=== PATIENT | male | born 1940 | race Caucasian/White ===

== ENCOUNTER 2024-07-31 17:18 | Outpatient (CLI) | payer MEDICARE, BC, SELFPAY | END 2024-07-31 17:19 | disposition home or self-care (01) | LOC: AMB 08-03 02:06 | PROVIDERS: Visit Provider Family Medicine | DX: R50.9 Fever, unspecified (principal); U07.1 COVID-19 | CPT/HCPCS: A0425; A0429 ==

== ENCOUNTER 2024-07-31 17:46 | Observation (INO) | payer MEDICARE, BC, SELFPAY ==
[2024-07-31] VITALS (16 sets, daily range): BP systolic 128–156; BP diastolic 63–97; PULSE 55–76; RESP 16–45; TEMP 36.9–38.8; O2SAT 92–95; BMI 33.5; BMI 33.3
--- NOTE | 2024-07-31 18:34 | ED.GENADULT ---
HPI - General Adult General Chief complaint: Weakness Stated complaint: Lethargic, weak Time Seen by Provider: 07/31/24 17:50 Source: family and EMS Mode of arrival: EMS Limitations: altered mental status History of Present Illness HPI narrative: 84-year-old male presenting to day with fevers. He was diagnosed with COVID earlier today. Unfortunately has become weaker and more confused as the day has gone on. Patient lives at home independently with his who was unable to take care of him in this state. He does have baseline dementia according to his son but this is much worse than usual. Patient is agitated and lethargic. Very little appetite today. Related Data Home Medications ?Medication ?Instructions ?Recorded ?Confirmed doxazosin 4 mg tablet (Cardura) 4 mg PO DAILY 07/31/24 07/31/24 hydrochlorothiazide 25 mg tablet 25 mg PO DAILY 07/31/24 07/31/24 levothyroxine 75 mcg tablet 75 mcg PO DAILY 07/31/24 07/31/24 (Euthyrox) simvastatin 20 mg tablet (Zocor) 20 mg PO DAILY 07/31/24 07/31/24 Allergies Allergy/AdvReac Type Severity Reaction Status Date / Time No Known Drug Allergies Allergy Verified 07/31/24 17:59 Review of Systems Status of ROS: Reports: unobtainable due to medical condition PFSH PFSH Social History How often do you have a drink containing alcohol: never AUDIT-C Alcohol total score: 0 Non-prescribed substance use: denies use Exam Narrative: Exam Narrative: Well-nourished well-developed patient in no acute distress. Cannot tell me where he is, the year or who he was talking to even after introductions. Patient states that he feels great he does not know why he is here. He is febrile. HEENT: Normocephalic atraumatic. Pupils are equally round reactive to light. Extraocular muscles are intact. Conjunctivae are moist without any icterus noted. Moist mucous membranes. Neck is soft. Speech is not slurred or pressured. Cardiovascular: Heart is regular rate and rhythm S1 and S2 are present without any murmurs. Lungs: Clear to auscultation bilaterally aside from mild bibasilar end-expiratory crackles. Abdomen: Soft and nontender nondistended with normal bowel sounds. Protuberant. Extremities: Bilateral lower extremities have 1 to 2+ pitting edema. Skin: Well perfused. Const: Vital Signs, click to edit/add: Vital Signs - 24 hr 07/31/24 17:52 07/31/24 18:05 07/31/24 18:06 Temperature 101.2 F H Pulse Rate 72 72 Pulse Rate [Pulse Oximeter] 73 Respiratory Rate 16 Blood Pressure 145/68 H Blood Pressure [Ri ght Upper Arm] 156/68 H Pulse Oximetry 95 94 94 Oxygen Delivery Me thod Room Air 07/31/24 18:16 07/31/24 18:30 07/31/24 18:32 Temperature Pulse Rate 71 70 76 Pulse Rate [Pulse Oximeter] Respiratory Rate Blood Pressure 138/97 H Blood Pressure [Ri ght Upper Arm] Pulse Oximetry 95 94 93 Oxygen Delivery Me thod 07/31/24 18:39 07/31/24 18:45 07/31/24 19:00 Temperature 101.9 F H Pulse Rate 69 Pulse Rate [Pulse Oximeter] Respiratory Rate 36 H Blood Pressure Blood Pressure [Ri ght Upper Arm] Pulse Oximetry 93 Oxygen Delivery Me thod 07/31/24 19:04 07/31/24 19:15 07/31/24 19:23 Temperature Pulse Rate Pulse Rate [Pulse Oximeter] Respiratory Rate 26 H 45 H 20 Blood Pressure Blood Pressure [Ri ght Upper Arm] Pulse Oximetry Oxygen Delivery Me thod Course Course ED Course: EKG, read by me, shows normal sinus rhythm with a pulse of 68. CBC does not show an elevated white cell count, normal hemoglobin. Sodium is low at 130, chloride low at 95. AST slightly elevated at 104, normal ALT. Bilirubin is elevated at 4.3, direct bilirubin elevated at 2.8. Protein and albumin are both elevated at 9.2 and 5.6 respectively. UA is unremarkable. Triple swab is positive for COVID-19. Potassium is still pending at this time. First specimen was hemolyzed. Chest x-ray does not show any acute infiltrates. Discussed patient with Dr. Reynoso, who will accept the patient for admission. Vital Signs Vital signs: Initial Vital Signs Temperature 101.2 F H 07/31/24 17:52 Temperature Source Temporal Artery Scan 07/31/24 17:52 Pulse Rate 73 07/31/24 17:52 Respiratory Rate 16 07/31/24 17:52 Blood Pressure 156/68 H 07/31/24 17:52 Blood Pressure Mean 97 07/31/24 17:52 Blood Pressure Position Sitting 07/31/24 17:52 Pulse Oximetry 95 07/31/24 17:52 Oxygen Delivery Method Room Air 07/31/24 17:52 Vital Signs Temperature 101.2 F H 07/31/24 17:52 Pulse Rate 73 07/31/24 17:52 Respiratory Rate 16 07/31/24 17:52 Blood Pressure 156/68 H 07/31/24 17:52 Pulse Oximetry 95 07/31/24 17:52 Oxygen Delivery Method Room Air 07/31/24 17:52 Temperature 101.9 F H 07/31/24 18:39 Pulse Rate 69 07/31/24 18:45 Respiratory Rate 20 07/31/24 19:23 Blood Pressure 138/97 H 07/31/24 18:32 Pulse Oximetry 93 07/31/24 18:45 Oxygen Delivery Method Room Air 07/31/24 17:52 Medications Administered Medications: Generic Name Dose Route Start Last Admin Trade Name Freq PRN Reason Stop Dose Admin Sodium Chloride 500 mls @ 500 mls/hr 07/31/24 19:10 07/31/24 19:29 0.9 % Sodium Chloride 500 Ml IV 07/31/24 20:09 500 mls/hr .Q1H ONE Administration Discontinued Medications Generic Name Dose Route Start Last Admin Trade Name Freq PRN Reason Stop Dose Admin Acetaminophen 1,000 mg 07/31/24 19:05 07/31/24 19:21 Acetaminophen 500 Mg Tablet PO 07/31/24 19:06 1,000 mg ONCE ONE Administration Medical Decision Making [facility] Narrative Medical decision making narrative: Elderly patient with COVID-19, weakness and confusion. Patient will be admitted for further management. Lab Data Lab results reviewed: Yes I reviewed the patient's lab results Labs: Lab Results 07/31/24 07/31/24 07/31/24 Range/Units 18:01 18:20 18:25 WBC 7.17 (4.50-11.00) K/uL RBC 5.07 (4.30-5.90) m/uL Hgb 16.3 (13.5-17.5) gm/dL Hct 47.9 (37.0-53.0) % MCV 95 (80-100) fL MCH 32 (26-34) pg MCHC 34 (32-36) gm/dL RDW Coeff of Shiv 13.0 (11.5-15.5) % Plt Count 161 (140-440) K/uL Neut % (Auto) 74.3 H (42.0-72.0) % Lymph % (Auto) 8.9 L (20-44) % [place] % (Auto) 15.8 H (0.0-11.0) % Eos % (Auto) 0.4 (0.0-7.0) % Baso % (Auto) 0.3 (0.0-3.0) % Neut # (Auto) 5.30 (1.7-7.0) K/uL Lymph # (Auto) 0.60 L (0.90-2.90) K/uL [place] # (Auto) 1.10 H (0.00-0.90) K/UL Eos # (Auto) 0.03 (0.00-0.50) K/uL Baso # (Auto) 0.02 (0.00-0.30) K/uL Abs Immat Gran (auto) 0.02 (0.00-0.30) K/uL Imm/Tot Granulo (auto) 0.3 % Sodium (135-149) mmol/L Chloride (96-114) mmol/L Carbon Dioxide (20-32) mmol/L Anion Gap (7-15) mEq/L BUN (7-30) mg/dL Creatinine (0.5-1.5) mg/dL Estimated Creat Clear Estimated GFR ml/min Glucose (60-115) mg/dL Lactate 1.3 (0.5-1.9) mmol/L Calcium (8.4-10.6) mg/dL Magnesium 2.1 (1.5-2.6) mg/dL Total Bilirubin 4.3 H (0.1-1.5) mg/dL Direct Bilirubin 2.8 H (0.0-0.5) mg/dL AST 104 H (12-35) U/L ALT 24 (4-50) U/L Alkaline Phosphatase < 20 L (40-150) U/L Troponin I 0.02 (0.01-0.04) ng/mL Total Protein 9.2 H (6.0-8.3) g/dL Albumin 5.6 H (3.3-5.0) g/dL Urine Color Yellow (Yellow) Urine Appearance Clear (Clear) Urine pH 5.5 (5.0-8.5) Ur Specific [place] 1.025 (1.000-1.030) Urine Protein Trace A (Negative) Urine Glucose (UA) Negative (Negative) Urine Ketones Negative (Negative) Urine Blood 1+ A (Negative) Urine Nitrite Negative (Negative) Urine Bilirubin Negative (Negative) Urine Urobilinogen 0.2 (0.2-1.0) Ur Leukocyte Esterase Negative (Negative) Urine RBC 0-2 (0-2) Urine WBC 0-2 (0-5) Ur Squamous Epith Cells None (None-Few) Urine Bacteria Few A (None) SARS-CoV-2 (PCR) POSITIVE SARS-CoV-2 A (Negative) Influenza Type A (PCR) Negative PCR FLU A (Negative) Influenza Type B (PCR) Negative PCR FLU B (Negative) RSV (PCR) Negative PCR RSV (Negative) 07/31/24 Range/Units 19:32 WBC (4.50-11.00) K/uL RBC (4.30-5.90) m/uL Hgb (13.5-17.5) gm/dL Hct (37.0-53.0) % MCV (80-100) fL MCH (26-34) pg MCHC (32-36) gm/dL RDW Coeff of Shiv (11.5-15.5) % Plt Count (140-440) K/uL Neut % (Auto) (42.0-72.0) % Lymph % (Auto) (20-44) % [place] % (Auto) (0.0-11.0) % Eos % (Auto) (0.0-7.0) % Baso % (Auto) (0.0-3.0) % Neut # (Auto) (1.7-7.0) K/uL Lymph # (Auto) (0.90-2.90) K/uL [place] # (Auto) (0.00-0.90) K/UL Eos # (Auto) (0.00-0.50) K/uL Baso # (Auto) (0.00-0.30) K/uL Abs Immat Gran (auto) (0.00-0.30) K/uL Imm/Tot Granulo (auto) % Sodium 130 L (135-149) mmol/L Chloride 95 L (96-114) mmol/L Carbon Dioxide 26 (20-32) mmol/L Anion Gap 9 (7-15) mEq/L BUN 16 (7-30) mg/dL Creatinine 1.0 (0.5-1.5) mg/dL Estimated Creat Clear 53.20 Estimated GFR 74 ml/min Glucose 117 H (60-115) mg/dL Lactate (0.5-1.9) mmol/L Calcium 8.3 L (8.4-10.6) mg/dL Magnesium (1.5-2.6) mg/dL Total Bilirubin (0.1-1.5) mg/dL Direct Bilirubin (0.0-0.5) mg/dL AST (12-35) U/L ALT (4-50) U/L Alkaline Phosphatase (40-150) U/L Troponin I (0.01-0.04) ng/mL Total Protein (6.0-8.3) g/dL Albumin (3.3-5.0) g/dL Urine Color (Yellow) Urine Appearance (Clear) Urine pH (5.0-8.5) Ur Specific [place] (1.000-1.030) Urine Protein (Negative) Urine Glucose (UA) (Negative) Urine Ketones (Negative) Urine Blood (Negative) Urine Nitrite (Negative) Urine Bilirubin (Negative) Urine Urobilinogen (0.2-1.0) Ur Leukocyte Esterase (Negative) Urine RBC (0-2) Urine WBC (0-5) Ur Squamous Epith Cells (None-Few) Urine Bacteria (None) SARS-CoV-2 (PCR) (Negative) Influenza Type A (PCR) (Negative) Influenza Type B (PCR) (Negative) RSV (PCR) (Negative) Imaging Data Chest x-ray: Attestation: I have reviewed the pertinent imaging results. Radiologist's impression: TECHNIQUE: Chest 1 view. COMPARISON: None. FINDINGS: Cardiovascular and mediastinum: Normal heart size. Uncoiled thoracic aorta. Lungs and pleural spaces: No focal consolidation. Mild right basilar atelectasis. No pleural effusion, or pneumothorax. Bones and soft tissues: Unremarkable for age. IMPRESSION: No evidence of an acute pulmonary process. ECG Data Attestation: I personally reviewed and interpreted this ECG as follows: Discharge Plan Discharge Clinical Impression: COVID-19, Weakness, Confusion Patient Disposition: Admitted As Observation Condition: Stable Prescriptions: No Action doxazosin [Cardura] 4 mg tablet 4 mg PO DAILY hydrochlorothiazide 25 mg tablet 25 mg PO DAILY levothyroxine [Euthyrox] 75 mcg tablet 75 mcg PO DAILY simvastatin [Zocor] 20 mg tablet 20 mg PO DAILY
[2024-07-31 18:36] LABS: Lactate* 1.3 mmol/L (0.5-1.9)
[2024-07-31 18:41] LABS: Basophils Absolute Auto 0.02 K/uL (0.00-0.30); Basophils Percent Auto 0.3 % (0.0-3.0); Eosinophils Absolute Auto 0.03 K/uL (0.00-0.50); Eosinophils Percent Auto 0.4 % (0.0-7.0); Hematocrit 47.9 % (37.0-53.0); Hemoglobin* 16.3 gm/dL (13.5-17.5); Immature Granulocytes Abs Auto 0.02 K/uL (0.00-0.30); Immature Granulocytes Pct Auto 0.3 %; Lymphocytes Percent Auto 8.9 % (20-44); Mean Corpuscular HGB Conc 34 gm/dL (32-36); Mean Corpuscular Hemoglobin 32 pg (26-34); Mean Corpuscular Volume 95 fL (80-100); Monocytes Percent Auto 15.8 % (0.0-11.0); Neutrophils Percent Auto 74.3 % (42.0-72.0); Platelet Count* 161 K/uL (140-440); Red Blood Count 5.07 m/uL (4.30-5.90); White Blood Count* 7.17 K/uL (4.50-11.00)
[2024-07-31 18:44] LABS: Slide Review Reflex No
[2024-07-31 19:06] LABS: Albumin* 5.6 g/dL (3.3-5.0)
[2024-07-31 19:07] LABS: Chloride* 95 mmol/L (96-114); Sodium* 130 mmol/L (135-149)
[2024-07-31 19:09] LABS: Alanine Aminotransferase* 24 U/L (4-50); Aspartate Amino Transferase* 104 U/L (12-35); Bilirubin Direct* 2.8 mg/dL (0.0-0.5); Bilirubin Total* 4.3 mg/dL (0.1-1.5); Magnesium* 2.1 mg/dL (1.5-2.6); Total Protein* 9.2 g/dL (6.0-8.3)
[2024-07-31 19:10] LABS: Anion Gap 9 mEq/L (7-15); Blood Urea Nitrogen* 16 mg/dL (7-30); Calcium* 8.3 mg/dL (8.4-10.6); Carbon Dioxide* 26 mmol/L (20-32); Estimated Glomerular Filt Rate 74 ml/min; Glucose* 117 mg/dL (60-115)
[2024-07-31 19:21] LABS: Troponin I* 0.02 ng/mL (0.01-0.04)
[2024-07-31] MEDS: ACETAMINOPHEN 500 MG TABLET 1000 MG PO (19:21)
[2024-07-31 19:24] LABS: Appearance Urine Clear (Clear); Bilirubin Urine Negative (Negative); Blood Urine 1+ (Negative); Color Urine Yellow (Yellow); Glucose Urine Negative (Negative); Ketones Urine Negative (Negative); Leukocyte Esterase Urine Negative (Negative); Nitrite Urine Negative (Negative); Protein Urine Trace (Negative); Specific Gravity Urine 1.025 (1.000-1.030); Urobilinogen Urine 0.2 (0.2-1.0); pH Urine 5.5 (5.0-8.5)
[2024-07-31] MEDS: 0.9 % SODIUM CHLORIDE 500 ML 500 ML IV ×2 (19:29→22:26)
[2024-07-31 19:30] LABS: PCR FLU A Negative PCR FLU A (Negative); PCR FLU B Negative PCR FLU B (Negative); PCR RSV Negative PCR RSV (Negative); SARS PCR* POSITIVE SARS-CoV-2 (Negative)
[2024-07-31 19:32] LABS: Alkaline Phosphatase* < 20 U/L (40-150)
[2024-07-31 19:41] LABS: Bacteria Urine Few; RBC Urine 0-2 (0-2); WBC Urine 0-2 (0-5)
[2024-07-31 19:51] LABS: Potassium* 3.3 mmol/L (3.6-5.1)
--- NOTE | 2024-07-31 21:53 | PM.IMHP1 ---
Hospitalist- H&P: HPI History of Present Illness Date Seen: 07/31/24 Chief complaint: Lethargic, weak Narrative: Willi Martines is a 84 year old man who presents with 1 day history of intermittent confusion, disorientation, weakness in association with intermittent spiking fevers. Home COVID test was negative yesterday. Home COVID test was positive today. Family initially intended on taking care of him in the home however he was so weak he could even stand up independently as he normally does so they ended up bringing him into the hospital via EMS for further assessment and treatment. Previously lived in [place], [place]. Moved to [facility], independent living section, February 2024. Lives there with his . He is retired. In speaking with his son, Milo Martines, college president of [facility], patient has had gradual progressive memory loss over the last few years but has been able to live independently with his . In the recent past his gait has become a little more unsteady and he started using a walker. T-max in the hospital today is 101.9? F. He has had tachypnea in association with the fever, with respiratory rate as high as 40. With resolution of his fever his tachypnea has also resolved. Has not had dyspnea or hypoxia. Has had a intermittent dry hacky cough. Review of Systems Status of ROS: Reports: 6 or more systems reviewed and unremarkable except as noted in History and below Narrative: He has very little recall of why he is here in the hospital or how he arrived here. He only recalls not feeling well and feeling weak. Denies cardiac or pulmonary symptoms. Denies gastrointestinal or genitourinary tract symptoms. Denies arthralgias or myalgias at this time but believes he may have had some aches and pains earlier today. Denies headache. [facility] Medical History ALANNA (obstructive sleep apnea) (09/02/15) ?G47.33 - Obstructive sleep apnea (adult) (pediatric) (ICD-10) Hypothyroidism (06/02/12) ?E03.9 - Hypothyroidism, unspecified (ICD-10) Hyperlipidemia ?E78.5 - Hyperlipidemia, unspecified (ICD-10) HTN (hypertension) (12/17/12) ?I10 - Essential (primary) hypertension (ICD-10) BPH (benign prostatic hyperplasia) (06/02/12) ?N40.0 - Benign prostatic hyperplasia without lower urinary tract symptoms (ICD-10) Asymmetrical sensorineural hearing loss ?H90.3 - Sensorineural hearing loss, bilateral (ICD-10) 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 Designates son, Milo Martines, as power of employment law attorney for health. His primary care physician is Dr. Ashley, [facility]. Requests DNR DNI resuscitation status. How often do you have a drink containing alcohol: never AUDIT-C Alcohol total score: 0 Non-prescribed substance use: denies use Meds Home Medications and Allergies Home Medications ?Medication ?Instructions ?Recorded ?Confirmed ?Type doxazosin 4 mg tablet (Cardura) 4 mg PO DAILY 07/31/24 07/31/24 History hydrochlorothiazide 25 mg tablet 25 mg PO DAILY 07/31/24 07/31/24 History levothyroxine 75 mcg tablet 75 mcg PO DAILY 07/31/24 07/31/24 History (Euthyrox) simvastatin 20 mg tablet (Zocor) 20 mg PO DAILY 07/31/24 07/31/24 History Allergies Allergy/AdvReac Type Severity Reaction Status Date / Time No Known Drug Allergies Allergy Verified 07/31/24 17:59 Exam Narrative: Exam Narrative: Examined patient in his hospital room. He is sitting comfortably on his bed. No acute distress. Alert and oriented to self, place, but needs to be reminded impart of time and situation. Pleasant, cooperative, friendly, articulate. External auditory canals are clear tympanic membranes are normal. Midline nasal septum. Dry buccal mucosa. Dentition in fair repair. Conjugate gaze. No icterus. Neck is supple. Midline trachea. No head neck lymphadenopathy. Lungs are clear to auscultation without wheezing, rhonchi, or rales. No coughing when I am examining him. Chest wall excursions are full. Heart tones with regular rhythm, normal S1-S2, without murmur, gallop, rub. PMI not laterally displaced. Abdomen is protuberant with active bowel sounds, soft, nontender. Extremities without edema. Moves all 4 extremities. Cranial nerves 3-12 grossly normal. No edema. Capillary refill less than 3 seconds. Skin is warm, dry, intact. Const: Vital Signs, click to edit/add: Vital Signs - 24 hr 07/31/24 17:52 07/31/24 18:05 07/31/24 18:06 Temperature 101.2 F H Pulse Rate 72 72 Pulse Rate [Pulse Oximeter] 73 Respiratory Rate 16 Blood Pressure 145/68 H Blood Pressure [Ri ght Upper Arm] 156/68 H Pulse Oximetry 95 94 94 Oxygen Delivery [facility] Room Air 07/31/24 18:16 07/31/24 18:30 07/31/24 18:32 Temperature Pulse Rate 71 70 76 Pulse Rate [Pulse Oximeter] Respiratory Rate Blood Pressure 138/97 H Blood Pressure [Ri ght Upper Arm] Pulse Oximetry 95 94 93 Oxygen Delivery [facility] 07/31/24 18:39 07/31/24 18:45 07/31/24 19:00 Temperature 101.9 F H Pulse Rate 69 Pulse Rate [Pulse Oximeter] Respiratory Rate 36 H Blood Pressure Blood Pressure [Ri ght Upper Arm] Pulse Oximetry 93 Oxygen Delivery [facility] 07/31/24 19:04 07/31/24 19:15 07/31/24 19:23 Temperature Pulse Rate Pulse Rate [Pulse Oximeter] Respiratory Rate 26 H 45 H 20 Blood Pressure Blood Pressure [Ri ght Upper Arm] Pulse Oximetry Oxygen Delivery [facility] 07/31/24 20:05 Temperature 101.3 F H Pulse Rate Pulse Rate [Pulse Oximeter] Respiratory Rate Blood Pressure Blood Pressure [Ri ght Upper Arm] Pulse Oximetry Oxygen Delivery [facility] Hospitalist - H&P: Result Labs Labs: Short CBC 07/31/24 Range/Units 18:25 WBC 7.17 (4.50-11.00) K/uL Hgb 16.3 (13.5-17.5) gm/dL Hct 47.9 (37.0-53.0) % Plt Count 161 (140-440) K/uL BMP 07/31/24 19:32 Sodium 130 L Potassium 3.3 L Chloride 95 L Carbon Dioxide 26 BUN 16 Creatinine 1.0 Glucose 117 H Calcium 8.3 L Cardiac Enzymes 07/31/24 Range/Units 18:25 Troponin I 0.02 (0.01-0.04) ng/mL Liver Function 07/31/24 Range/Units 18:25 Total Bilirubin 4.3 H (0.1-1.5) mg/dL Direct Bilirubin 2.8 H (0.0-0.5) mg/dL AST 104 H (12-35) U/L ALT 24 (4-50) U/L Alkaline Phosphatase < 20 L (40-150) U/L Albumin 5.6 H (3.3-5.0) g/dL Urine 07/31/24 Range/Units 18:01 Urine Color Yellow (Yellow) Urine Appearance Clear (Clear) Urine pH 5.5 (5.0-8.5) Ur Specific [place] 1.025 (1.000-1.030) Urine Protein Trace A (Negative) Urine Glucose (UA) Negative (Negative) ECG Attestation: I personally reviewed and interpreted this ECG as follows: ECG interpretation date: 07/31/24 Interpretation: Normal sinus rhythm without evidence of infarction or ischemic pattern. Imaging Chest x-ray: Attestation: I have reviewed the pertinent imaging results. Radiologist's impression: No acute cardiopulmonary findings. Assessment and Plan Assessment and plan (1) COVID-19: Problem comment: -symptom onset 07/30/2024. Home COVID test negative on 07/30/2024, but positive 07/31/2024. SARS-CoV-2 test positive 07/31/2024, negative chest x-ray. -start Paxlovid 150-100 renal dosing 08/01/2024. I sent prescription to [facility] on evening of 07/31/2024. Status: Acute (2) Confusion: Problem comment: -acute confusion on top of baseline slowly evolving cognitive impairment, likely fever associated delirium in association with COVID-19 -schedule acetaminophen and monitor his fevers. Will not order a nonsteroidal anti-inflammatory medication given his dehydrated state. -monitor -consider imaging if warranted over time, such as CT scan without contrast verses MRI of brain Status: Acute (3) Weakness: Problem comment: -usually independent with ADLs although recently started using a walker -current weakness likely related to acute febrile illness -PT and OT to assess and recommend Status: Acute (4) Age-related memory disorder: Problem comment: -Longstanding slowly evolving cognitive impairment consistent with dementia of Alzheimer's type, more recently with evolving gait impairment now requiring use of walker Status: Acute (5) Dehydration: Problem comment: -500 mL normal saline IV administered in the ED. -additional normal saline hydration on arrival to floor. Status: Acute (6) Hyponatremia: Problem comment: -normal saline IV -monitor -consider fluid restriction if appropriate over time Status: Acute (7) Hypokalemia: Problem comment: -potassium 3.0 on 07/31/2024. Potassium chloride 40 mEq p.o. administered evening of 07/31/2024. -monitor lab Status: Acute (8) Hyperbilirubinemia: Problem comment: -history of cholecystectomy -monitor levels with rehydration Status: Acute (9) Elevated transaminase level: Problem comment: -likely due to COVID-19 -monitor levels Status: Acute Plan 1. Reviewed impression and plan with patient. 2. Called his son, Milo Martines, I reviewed impression and plan as well. 3. Answered their questions are satisfaction. 4. They are agreeable with above stated plans and recommendations. Total Time Spent Total Time Spent: 70 minutes
[2024-07-31] MEDS: POTASSIUM CHLORIDE 10 MEQ CAPSULE ER 40 MEQ PO (22:25)
[2024-07-31] MEDS: ENOXAPARIN 40 MG/0.4 ML INJ SUBCUT (22:25)
[2024-07-31] MEDS: ACETAMINOPHEN 325 MG TABLET 975 MG PO (22:26)
[2024-07-31] MEDS: 0.9 % SODIUM CHLORIDE 1000 ml 1,000 ML 125 ML IV (22:26)
[2024-08-01 05:05] VITALS: BP 122/63; PULSE 58; TEMP 36.5; O2SAT 94
[2024-08-01] MEDS: LEVOTHYROXINE 75 MCG TABLET PO (06:31)
[2024-08-01 07:00] VITALS: BP 108/58; PULSE 48; PULSE 55; RESP 16; TEMP 37.1; O2SAT 93
[2024-08-01 07:03] LABS: Hematocrit 45.6 % (37.0-53.0); Hemoglobin* 15.2 gm/dL (13.5-17.5); Mean Corpuscular HGB Conc 33 gm/dL (32-36); Mean Corpuscular Hemoglobin 32 pg (26-34); Mean Corpuscular Volume 96 fL (80-100); Platelet Count* 157 K/uL (140-440); Red Blood Count 4.74 m/uL (4.30-5.90); White Blood Count* 6.71 K/uL (4.50-11.00)
[2024-08-01 07:20] LABS: Slide Review Reflex No
--- NOTE | 2024-08-01 07:24 | PC.NURSE ---
End of shift - Pt arrived from ED at approximately 2024. Oriented to self, disoriented to place, situation, and time. Pt very pleasant and easily reoriented. Pt required frequent education regarding call light use, however comprehension not shown and pt repeatedly set off bed alarm. Up with standby assistance using urinal at bedside upon arrival. Pt was able to ambulate to bathroom using walker and standby assistance by end of shift. Continent of bladder during shift. Tolerating RA, regular diet/fluids. Denies pain, SOB. Observed to sleep during shift. Febrile upon arrival to unit, given antipyretic medication per AUG. Afebrile for remainder of shift. Lethargy weakness originally reported from ED appeared to improve by shift end. Pt appears to be resting comfortably in bed with call light within reach.
[2024-08-01 07:32] LABS: Albumin* 3.6 g/dL (3.3-5.0); Chloride* 100 mmol/L (96-114)
[2024-08-01 07:33] LABS: Sodium* 135 mmol/L (135-149)
[2024-08-01 07:34] LABS: Creatinine* 0.9 mg/dL (0.5-1.5); Estimated Glomerular Filt Rate 84 ml/min
[2024-08-01 07:35] LABS: Alkaline Phosphatase* 31 U/L (40-150); Anion Gap 7 mEq/L (7-15); Aspartate Amino Transferase* 27 U/L (12-35); Bilirubin Direct* 0.2 mg/dL (0.0-0.5); Bilirubin Total* 1.4 mg/dL (0.1-1.5); Blood Urea Nitrogen* 14 mg/dL (7-30); Carbon Dioxide* 28 mmol/L (20-32)
[2024-08-01 07:36] LABS: Alanine Aminotransferase* 16 U/L (4-50); Glucose* 93 mg/dL (60-115)
[2024-08-01] MEDS: ACETAMINOPHEN 325 MG TABLET 975 MG PO ×3 (08:59→20:28)
[2024-08-01 11:00] VITALS: BP 102/54; PULSE 48; RESP 16; TEMP 36.9; O2SAT 93
--- NOTE | 2024-08-01 13:52 | PM.IMPN1 ---
Progress Note: A&P Assessment and plan (1) COVID-19: Problem details: -symptom onset 07/30/2024. Home COVID test negative on 07/30/2024, but positive 07/31/2024. SARS-CoV-2 test positive 07/31/2024, negative chest x-ray. -start Paxlovid 150-100 renal dosing 08/01/2024. Prescription to [facility] on evening of 07/31/2024. Son brought it this morning and it was started. - no hypoxia noted Status: Acute (2) Confusion: Problem details: -acute confusion on top of baseline slowly evolving cognitive impairment, likely fever associated delirium in association with COVID-19 -schedule acetaminophen and monitor his fevers. Will not order a nonsteroidal anti-inflammatory medication given his dehydrated state. - improving, but may be sundowning or delirious now this afternoon -monitor tonight yet and anticipate may be able to d/c home tomorrow -consider imaging if warranted over time, such as CT scan without contrast verses MRI of brain Status: Acute (3) Weakness: Problem details: -usually independent with ADLs although recently started using a walker -current weakness likely related to acute febrile illness -PT and OT recommend use walker for stability as outpatient. Patient's son aware and is getting a walker for Willi. 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 -additional normal saline hydration on arrival to floor. Status: Resolved (6) Hyponatremia: Problem details: -normal saline IV -monitor -consider fluid restriction if appropriate over time - resolved 08/01 Status: Resolved (7) Hypokalemia: Problem details: -potassium 3.0 on 07/31/2024. Potassium chloride 40 mEq p.o. administered evening of 07/31/2024. -monitor lab - resolved 08/01 Status: Resolved (8) Hyperbilirubinemia: Problem details: -history of cholecystectomy -monitor levels with rehydration - resolved 08/01 after rehydration Status: Resolved (9) Elevated transaminase level: Problem details: -likely due to COVID-19 -monitor levels - resolved 08/01 Status: Resolved (10) Bradycardia: Problem details: asymptomatic. Medications reviewed. Monitor on tele. Status: Acute Time Spent With Patient Total time spent: Today I spent for minutes seeing the patient, talking with the patient's son on the phone, reviewing Expanse and EPIC notes/diagnostics/labs, discussing the care plan with our care team that includes social work, PT/OT, pharmacy, RT, [facility] and documenting my impressions and plan in the medical record. Subjective Time Seen by Provider: 09:19 Date Seen: 08/01/24 Interval history: Willi feels better, stronger today. PT told me that he is unsteady, but could use a walker at home. I spoke with his son, Milo, who will work on getting one for him. I spoke with OT who noted Willi did well, but seems confused. Milo notes that Willi has dementia and sundowns. Willi was more confused last night with a fever also. Milo brought paxlovid in for Willi and he started taking it this morning. Exam Narrative: Exam Narrative: General: No acute distress. Awake, alert, oriented. No pallor. No jaundice. Oropharynx: Clear. Mucous membranes moist. Cardiovascular: Regular rate and rhythm. No murmurs, gallops, or rubs. Respiratory: Clear to auscultation bilaterally. No wheezes or crackles. Abdomen: Bowel sounds present. Soft, nondistended, nontender. Extremities: No lower extremity edema. Const: Vital Signs, click to edit/add: Vital Signs - 24 hr 07/31/24 17:52 07/31/24 18:05 07/31/24 18:06 Temperature 101.2 F H Pulse Rate 72 72 Pulse Rate [Pulse Oximeter] 73 Respiratory Rate 16 Blood Pressure 145/68 H Blood Pressure [Le ft Arm] Blood Pressure [Ri ght Upper Arm] 156/68 H Pulse Oximetry 95 94 94 Oxygen Delivery Me thod Room Air 07/31/24 18:16 07/31/24 18:30 07/31/24 18:32 Temperature Pulse Rate 71 70 76 Pulse Rate [Pulse Oximeter] Respiratory Rate Blood Pressure 138/97 H Blood Pressure [Le ft Arm] Blood Pressure [Ri ght Upper Arm] Pulse Oximetry 95 94 93 Oxygen Delivery Me thod 07/31/24 18:39 07/31/24 18:45 07/31/24 19:00 Temperature 101.9 F H Pulse Rate 69 Pulse Rate [Pulse Oximeter] Respiratory Rate 36 H Blood Pressure Blood Pressure [Le ft Arm] Blood Pressure [Ri ght Upper Arm] Pulse Oximetry 93 Oxygen Delivery Me thod 07/31/24 19:04 07/31/24 19:15 07/31/24 19:23 Temperature Pulse Rate Pulse Rate [Pulse Oximeter] Respiratory Rate 26 H 45 H 20 Blood Pressure Blood Pressure [Le ft Arm] Blood Pressure [Ri ght Upper Arm] Pulse Oximetry Oxygen Delivery Me thod 07/31/24 20:05 07/31/24 23:22 07/31/24 23:23 Temperature 101.3 F H 98.4 F 100.2 F H Pulse Rate Pulse Rate [Pulse Oximeter] 55 L 68 Respiratory Rate 16 16 Blood Pressure Blood Pressure [Le ft Arm] 130/66 128/63 Blood Pressure [Ri ght Upper Arm] Pulse Oximetry 95 [facility] 07/31/24 23:29 08/01/24 05:05 08/01/24 07:00 Temperature 97.7 F 98.8 F Pulse Rate Pulse Rate [Pulse Oximeter] 58 L 55 L Respiratory Rate 16 16 Blood Pressure Blood Pressure [Le ft Arm] 122/63 108/58 L Blood Pressure [Ri ght Upper Arm] Pulse Oximetry 92 94 93 [facility] Room Air Room Air 08/01/24 07:00 08/01/24 11:00 Temperature 98.4 F Pulse Rate Pulse Rate [Pulse Oximeter] 48 L 48 L Respiratory Rate 16 16 Blood Pressure Blood Pressure [Le ft Arm] 102/54 L Blood Pressure [Ri ght Upper Arm] Pulse Oximetry 93 [facility] Labs Labs: Laboratory Results - last 24 hr 07/31/24 07/31/24 07/31/24 18:01 18:20 18:25 WBC 7.17 RBC 5.07 Hgb 16.3 Hct 47.9 MCV 95 MCH 32 MCHC 34 RDW Coeff of Shiv 13.0 Plt Count 161 Neut % (Auto) 74.3 H Lymph % (Auto) 8.9 L Luce % (Auto) 15.8 H Eos % (Auto) 0.4 Baso % (Auto) 0.3 Neut # (Auto) 5.30 Lymph # (Auto) 0.60 L Luce # (Auto) 1.10 H Eos # (Auto) 0.03 Baso # (Auto) 0.02 Abs Immat Gran (auto) 0.02 Imm/Tot Granulo (auto) 0.3 Sodium Potassium Chloride Carbon Dioxide Anion Gap BUN Creatinine Estimated Creat Clear Estimated GFR Glucose Lactate 1.3 Calcium Magnesium 2.1 Total Bilirubin 4.3 H Direct Bilirubin 2.8 H AST 104 H ALT 24 Alkaline Phosphatase < 20 L Troponin I 0.02 Total Protein 9.2 H Albumin 5.6 H Urine Color Yellow Urine Appearance Clear Urine pH 5.5 Ur Specific Garner 1.025 Urine Protein Trace A Urine Glucose (UA) Negative Urine Ketones Negative Urine Blood 1+ A Urine Nitrite Negative Urine Bilirubin Negative Urine Urobilinogen 0.2 Ur Leukocyte Esterase Negative Urine RBC 0-2 Urine WBC 0-2 Ur Squamous Epith Cells None Urine Bacteria Few A SARS-CoV-2 (PCR) POSITIVE SARS-CoV-2 A Influenza Type A (PCR) Negative PCR FLU A Influenza Type B (PCR) Negative PCR FLU B RSV (PCR) Negative PCR RSV 07/31/24 08/01/24 19:32 06:43 WBC 6.71 RBC 4.74 Hgb 15.2 Hct 45.6 MCV 96 MCH 32 MCHC 33 RDW Coeff of Shiv Plt Count 157 Neut % (Auto) Lymph % (Auto) Luce % (Auto) Eos % (Auto) Baso % (Auto) Neut # (Auto) Lymph # (Auto) Luce # (Auto) Eos # (Auto) Baso # (Auto) Abs Immat Gran (auto) Imm/Tot Granulo (auto) Sodium 130 L 135 Potassium 3.3 L 4.0 Chloride 95 L 100 Carbon Dioxide 26 28 Anion Gap 9 7 BUN 16 14 Creatinine 1.0 0.9 Estimated Creat Clear 53.20 53.20 Estimated GFR 74 84 Glucose 117 H 93 Lactate Calcium 8.3 L 8.0 L Magnesium Total Bilirubin 1.4 Direct Bilirubin 0.2 AST 27 ALT 16 Alkaline Phosphatase 31 L Troponin I Total Protein 6.0 Albumin 3.6 Urine Color Urine Appearance Urine pH Ur Specific Garner Urine Protein Urine Glucose (UA) Urine Ketones Urine Blood Urine Nitrite Urine Bilirubin Urine Urobilinogen Ur Leukocyte Esterase Urine RBC Urine WBC Ur Squamous Epith Cells Urine Bacteria SARS-CoV-2 (PCR) Influenza Type A (PCR) Influenza Type B (PCR) RSV (PCR)
[2024-08-01 15:00] VITALS: BP 115/78; PULSE 46; PULSE 48; RESP 16; TEMP 36.9; O2SAT 93
[2024-08-01 19:00] VITALS: BP 133/72; PULSE 67; RESP 16; TEMP 37.8; O2SAT 93
[2024-08-01] MEDS: ENOXAPARIN 40 MG/0.4 ML INJ SUBCUT (20:28)
[2024-08-01] MEDS: DOXAZOSIN 4 MG TABLET PO (20:29)
[2024-08-01] MEDS: NIRMATRELVIR/RITONAVIR DOSEPAK 3 TAB PO (20:49)
[2024-08-01] MEDS: SODIUM CHLORIDE 0.9 % (FLUSH) 10 ML SYRINGE 5 ML IVF (20:51)
[2024-08-01 22:58] VITALS: BP 111/66; PULSE 53; RESP 16; TEMP 37.1; O2SAT 93
[2024-08-02 03:00] VITALS: BP 123/61; PULSE 51; RESP 16; TEMP 37.1; O2SAT 94
[2024-08-02] MEDS: ACETAMINOPHEN 325 MG TABLET 975 MG PO ×2 (03:13→09:20)
--- NOTE | 2024-08-02 03:44 | PC.NURSE ---
Shift note: Pt is active and appears more alert and oriented this shift than he was yesterday. Continue to video monitor him. At 2129, Pt removed the IV line and the telebox. Hospitalist informed and ordered to DC them because pt pending DC today and do no have any IV therapy. The Paxlivid order did not match the the medication. Pharmacy informed and rectified the medication order. SBA in room. Had fever of 100.1 at the start of the shift. Tylenol givene and was effective. Had adequate sleep. Vitally stable.
[2024-08-02] MEDS: LEVOTHYROXINE 75 MCG TABLET PO (06:38)
[2024-08-02 07:00] VITALS: BP 129/66; PULSE 55; RESP 16; TEMP 36.6; O2SAT 93
[2024-08-02] MEDS: NIRMATRELVIR/RITONAVIR DOSEPAK 3 TAB PO (09:20)
--- NOTE | 2024-08-02 10:15 | PM.DS1 ---
DS: Providers Provider Date Seen: 08/02/24 Date of admission: 07/31/24 20:30 Primary care physician: Not a Local Provider Admitting Clinician: Nini Alexis MD Consults: 07/31/24 21:52 Consult to Occupational Therapy [CONS] Routine Comment: Reason(s) for OT Consult:: Evaluate and Treat Any Restrictions?:: No Restrictions Consult to Physical Therapy [CONS] Routine Comment: Reason(s) for PT Consult:: Evaluate and Treat Any Restrictions?:: No Restrictions Attending Physician on discharge: Ydoit Mcmanus MD DS: Diagnosis Discharge Diagnosis (1) COVID-19: Status: Acute Problem details: -symptom onset 07/30/2024. Home COVID test negative on 07/30/2024, but positive 07/31/2024. SARS-CoV-2 test positive 07/31/2024, negative chest x-ray. -start Paxlovid 150-100 renal dosing 08/01/2024. Prescription to [facility] on evening of 07/31/2024. Son brought it 08/01 and it was started. - no hypoxia noted (2) Confusion: Status: Acute Problem details: -acute confusion on top of baseline slowly evolving cognitive impairment, likely fever associated delirium in association with COVID-19 -schedule acetaminophen and monitor his fevers. Will not order a nonsteroidal anti-inflammatory medication given his dehydrated state. - Resolved, back to baseline cognition - I called son and notified him of recommendations of 07/01 supervision (3) Weakness: Status: Acute Problem details: -usually independent with ADLs although recently started using a walker -weakness likely related to acute febrile illness -PT and OT recommend use walker for stability as outpatient. Patient's son aware and is getting a walker for Willi. (4) Age-related memory disorder: Status: Chronic Problem details: -Longstanding slowly evolving cognitive impairment consistent with dementia of Alzheimer's type, more recently with evolving gait impairment now requiring use of walker (5) Hyponatremia: Status: Resolved Problem details: -normal saline IV -monitor -consider fluid restriction if appropriate over time - resolved 08/01 (6) Hypokalemia: Status: Resolved Problem details: -potassium 3.0 on 07/31/2024. Potassium chloride 40 mEq p.o. administered evening of 07/31/2024. -monitor lab - resolved 08/01 (7) Hyperbilirubinemia: Status: Resolved Problem details: -history of cholecystectomy -monitor levels with rehydration - resolved 08/01 after rehydration (8) Elevated transaminase level: Status: Resolved Problem details: -likely due to COVID-19 -monitor levels - resolved 08/01 (9) Bradycardia: Status: Acute Problem details: asymptomatic. Medications reviewed. Improving. (10) Dehydration: Status: Resolved Problem details: -500 mL normal saline IV administered in the ED. -additional normal saline hydration on arrival to floor. DS: Summary Hospital Course Hospital Course: Per H&P: Willi Martines is a 84 year old man who presents with 1 day history of intermittent confusion, disorientation, weakness in association with intermittent spiking fevers. Home COVID test was negative yesterday. Home COVID test was positive today. Family initially intended on taking care of him in the home however he was so weak he could even stand up independently as he normally does so they ended up bringing him into the hospital via EMS for further assessment and treatment. Previously lived in [place], [place]. Moved to [facility], independent living section, February 2024. Lives there with his . He is retired. In speaking with his son, Milo Martines, global consumer sector vice president of [facility], patient has had gradual progressive memory loss over the last few years but has been able to live independently with his . In the recent past his gait has become a little more unsteady and he started using a walker. T-max in the hospital today is 101.9? F. He has had tachypnea in association with the fever, with respiratory rate as high as 40. With resolution of his fever his tachypnea has also resolved. Has not had dyspnea or hypoxia. Has had a intermittent dry hacky cough. Improved condition overnight. Paxlovid started. Patient had asymptomatic bradycardia which improved. PT and OT evaluated and recommended that he have 24/7 supervision at home and use a walker. I have been in contact with his son, Milo, regarding these recommendations. Patient is discharged home in improved and stable condition today. Time Spent with Patient Time attestation: Total time spent providing and/or coordinating discharge services: Exam Narrative: Exam Narrative: General: No acute distress. Awake, alert, oriented. No pallor. No jaundice. Oropharynx: Clear. Mucous membranes moist. Cardiovascular: Regular rate and rhythm. No murmurs, gallops, or rubs. Respiratory: Clear to auscultation bilaterally. No wheezes or crackles. Abdomen: Bowel sounds present. Soft, nondistended, nontender. Extremities: No lower extremity edema. Const: Vital Signs, click to edit/add: Vital Signs - 24 hr 08/01/24 11:00 08/01/24 15:00 08/01/24 15:00 Temperature 98.4 F 98.4 F Pulse Rate Pulse Rate [Pulse Oximeter] 48 L 48 L 48 L Respiratory Rate 16 16 16 Blood Pressure [Le ft Arm] 102/54 L 115/78 Pulse Oximetry 93 93 Oxygen Delivery Me thod Room Air Room Air 08/01/24 15:00 08/01/24 19:00 08/01/24 22:58 Temperature 100.1 F H Pulse Rate 46 L 53 L Pulse Rate [Pulse Oximeter] 67 Respiratory Rate 16 Blood Pressure [Le ft Arm] 133/72 Pulse Oximetry 93 Oxygen Delivery Nc thod Room Air 08/01/24 22:58 08/01/24 22:58 08/02/24 03:00 Temperature 98.7 F 98.7 F Pulse Rate Pulse Rate [Pulse Oximeter] 53 L 53 L 51 L Respiratory Rate 16 16 16 Blood Pressure [Le ft Arm] 111/66 123/61 Pulse Oximetry 93 94 Oxygen Delivery Me thod Room Air Room Air 08/02/24 07:00 Temperature 97.9 F Pulse Rate Pulse Rate [Pulse Oximeter] 55 L Respiratory Rate 16 Blood Pressure [Le ft Arm] 129/66 Pulse Oximetry 93 Oxygen Delivery Nc thod Room Air DS: Data Data Completed and Pending Completed studies during hospitalization: 07/31/2024 EKG: Normal sinus rhythm, 60 beats per minute, low voltage QRS. Ordering Physician: Giana Hanson M.D. Date of Service: 07/31/24 Procedure(s): XR chest 1V portable Accession Number(s): [id number] cc: Giana Hanson M.D.~ For Patients: As a result of the Cures Act, medical imaging exams and procedure reports are released immediately into your electronic medical record. You may view this report before your referring provider. If you have questions, please contact your health care provider. INDICATION: Weakness. TECHNIQUE: Chest 1 view. COMPARISON: None. FINDINGS: Cardiovascular and mediastinum: Normal heart size. Uncoiled thoracic aorta. Lungs and pleural spaces: No focal consolidation. Mild right basilar atelectasis. No pleural effusion, or pneumothorax. Bones and soft tissues: Unremarkable for age. IMPRESSION: No evidence of an acute pulmonary process. Dictated by Tariq Rdz MD @ 07/31/2024 6:32:06 PM (Electronically Signed) Labs on day of discharge: Preliminary micro results at discharge 07/31/24 18:01 Urine Culture - Preliminary Urine,Clean Catch Discharge Plan Discharge Disposition: Home, Self-Care Date of Admission: 07/31/24 20:30 Attending Provider on Discharge: Yodit Mcmanus Primary Care Provider: Provider,Not a Local Condition: Stable Anticipated Discharge Date/Time: 08/02/24 11:00 Discharge Medications: New Paxlovid 150-100 mg tablets,dose pack See Rx Instructions .ROUTE .COMPLEX Qty: 20 0RF Rx Instructions: orally per package directions Continued doxazosin [Cardura] 4 mg tablet 4 mg PO HS hydrochlorothiazide 25 mg tablet 25 mg PO DAILY levothyroxine [Euthyrox] 75 mcg tablet 75 mcg PO DAILY simvastatin [Zocor] 20 mg tablet 20 mg PO HS Discharge Orders: Discharge Order (Routine); Ordered 08/02/24 Ordered By: Yodit Mcmanus Additional Instructions: / supervision Activity Level: Activity as Tolerated and Use Walker Discharge Diet: Regular Follow Up Appointments: Provider,Not a Local [Primary Care Provider] - (PCP for LFTs 10 days) Forms: [facility] Info Instructions
--- NOTE | 2024-08-02 13:47 | PC.NURSE ---
Discharge-- Very pleasant and cooperative patient discharged to home at [facility] via wheelchair with son. Alert but oriented to person only as per baseline dementia. VSS and pt is afebrile. SPO2 maintained >90% on RA. He denied any pain. LS CTA. He denied nausea, ate 100% of a regular breakfast without difficulty and had a BM this morning per patient statement. SBA to independent with walker and steady on his feet. Discharge education was provided including diagnosis info, symptoms to report, medications and follow up plan. No further questions asked.
--- NOTE | 2024-08-05 15:59 | ONC.NURNOTE ---
Patient was referred by PCP, expert medical writer attempted to call patient and spouse to schedule labs recommended by Dr. Rai and follow up after this. Patient and spouse were diagnosed with COVID on 07/31/2024 and are feeling under the weather, they would like expert medical writer to contact their son. First available date for labs would be 08/10/2024, LMOM for son to call back to schedule.
== END 2024-08-02 12:25 | disposition home or self-care (01) ==
LOC: ED 19:50 → MEDSURG 20:31
PROVIDERS: Internal Medicine; Admitting Provider Family Medicine; Emergency Provider Family Medicine; Visit Provider Family Medicine
DX: U07.1 COVID-19 (principal); R53.1 Weakness; R41.0 Disorientation, unspecified; E86.0 Dehydration; R74.01 Elevation of levels of liver transaminase levels; R00.1 Bradycardia, unspecified; E80.6 Other disorders of bilirubin metabolism; E87.6 Hypokalemia; E87.1 Hypo-osmolality and hyponatremia; R41.3 Other amnesia
CPT/HCPCS: 36415; 71045; 80048; 80076; 81001; 83605; 83735; 84484; 85025; 85027; 87086; 87631; 93005; 94761; 96360; 96361; 96372; 97116; 97161; 97166; 97530; 97535; 99284; 99285; A9270; G0378; J1650; J7030

== ENCOUNTER 2024-08-28 13:32 | Outpatient (CLI) | payer MEDICARE, BC, SELFPAY ==
--- NOTE | 2024-08-28 13:45 | CRLHL7_ITS ---
For Patients: As a result of the Century Cures Act, medical imaging exams and procedure reports are released immediately into your electronic medical record. You may view this report before your referring provider. If you have questions, please contact your health care provider. Indication: hx of covid, lumps felt Technique: Grayscale and color Doppler ultrasound of the supraclavicular soft tissues performed bilaterally. Comparison: None Findings: Subcutaneous lymph nodes are present measuring up to 9 x 3 x 8 millimeters on the right and 6 x 5 x 6 millimeters on the left. No abnormal vascularity. No shadowing lesion. Impression: Normal sub cm supraclavicular lymph nodes. No suspicious findings. Dictated by Teja Baptiste MD @ 08/28/2024 2:34:37 PM (Electronically Signed)
== END 2024-08-28 13:33 | disposition home or self-care (01) ==
LOC: US 13:33
PROVIDERS: PCP Family Medicine; Visit Provider Internal Medicine Hematology & Oncology
DX: R22.1 Localized swelling, mass and lump, neck (principal); U07.1 COVID-19
CPT/HCPCS: 76536

== ENCOUNTER 2024-10-20 13:30 | Outpatient (RCR) | payer MEDICARE, BC, SELFPAY ==
[2024-08-19 14:46] LABS: JAK2 Qual Mutation by PCR Not Detected; JAK2 Qual, Source Whole Blood
--- NOTE | 2024-09-09 11:43 | ONC.NURNOTE ---
ultrasound reviewed by Dr. Reyes on 09/07/24, she called pt with results.
[2024-09-22 13:39] LABS: Hematocrit 50.0 % (37.0-53.0); Hemoglobin* 17.2 gm/dL (13.5-17.5); Immature Granulocytes Abs Auto 0.01 K/uL (0.00-0.30); Immature Granulocytes Pct Auto 0.1 %; Lymphocytes Absolute Auto 1.85 K/uL (0.90-2.90); Mean Corpuscular HGB Conc 34 gm/dL (32-36); Mean Corpuscular Hemoglobin 33 pg (26-34); Mean Corpuscular Volume 95 fL (80-100); RDW Coefficient of Variation % 13.0 % (11.5-15.5); Red Blood Count 5.28 m/uL (4.30-5.90); White Blood Count* 7.57 K/uL (4.50-11.00)
[2024-09-22 13:43] LABS: Slide Review Reflex No
[2024-10-20 13:41] LABS: Hematocrit 49.5 % (37.0-53.0); Hemoglobin* 17.0 gm/dL (13.5-17.5); Immature Granulocytes Abs Auto 0.02 K/uL (0.00-0.30); Immature Granulocytes Pct Auto 0.3 %; Lymphocytes Absolute Auto 1.84 K/uL (0.90-2.90); Mean Corpuscular HGB Conc 34 gm/dL (32-36); Mean Corpuscular Hemoglobin 33 pg (26-34); Mean Corpuscular Volume 95 fL (80-100); RDW Coefficient of Variation % 12.9 % (11.5-15.5); Red Blood Count 5.20 m/uL (4.30-5.90); White Blood Count* 7.35 K/uL (4.50-11.00)
[2024-10-20 13:43] LABS: Slide Review Reflex No
== END 2025-02-07 23:59 | disposition home or self-care (01) ==
LOC: CCIC 13:30
PROVIDERS: Internal Medicine Hematology & Oncology; PCP Family Medicine; Visit Provider Clinical Nurse Specialist
DX: D75.1 Secondary polycythemia (principal)
CPT/HCPCS: 36415; 81270; 82668; 85025; 99202; 99205